=== PATIENT | female | born 1960 | race Caucasian/White ===

== ENCOUNTER 2017-07-03 23:31 | Emergency (ER) | payer OTHER ==
[~2017-07-03] VITALS: Ht 154.9 cm; Wt 71.8 kg
[~2017-07-03 23:31] MED LIST: ASPIRIN81 M1 PO; LEXAPRO10 MG PO; LIPITOR20 MG PO; NOHOMEMEDS; PROMETHAZINE HC25 M1 PO; XANAX0.25 MG PO; ZOFRAN8 M1 PO
[2017-07-04 01:09] LABS: D-DIMER ELISA < 150.00 ng/mLDDU (<230)
[2017-07-04 01:10] LABS: CHLORIDE 105 mEq/L (99-109); POTASSIUM 5.2 mEq/L (3.7-5.4); SODIUM 139 mEq/L (136-147)
[2017-07-04 01:12] LABS: GLUCOSE 116 mg/dL (70-99)
[2017-07-04 01:14] LABS: ANION GAP 13 MEQ/L (2-14); TOTAL BILIRUBIN 0.4 mg/dL (0.0-1.0)
[2017-07-04 01:16] LABS: ALKALINE PHOSPHATASE 94 IU/L (3-129); GFR ESTIMATE (CALCULATED) > 59 mL/min/
[2017-07-04 01:17] LABS: UREA NITROGEN (BUN) 13 mg/dL (9-23)
[2017-07-04 01:26] LABS: HEMATOCRIT 47.2 % (36.0-46.0); MCH 30.7 PG (29.0-34.0); MCHC 33.3 G/DL (30.0-36.0); MCV 92.4 FL (83-99); MEAN PLAT.VOLUME 10.6 uM^3 (9.5-12.4); PLATELET COUNT 230 K/uL (156-360); RBC DIS.WIDTH-CV 12.8 % (11.8-14.6); RBC DIS.WIDTH-SD 43.7 % (39-53); RED BLOOD COUNT 5.11 M/uL (3.80-5.20); WHITE BLOOD COUNT 7.5 K/uL (4.1-10.2)
[2017-07-04 01:27] LABS: TROP-I INTERPRETATION NEGATIVE; TROPONIN-I < 0.01 ng/mL (0.0-0.30)
[2017-07-04] MEDS ORDERED: FLEXERIL10 MG PO (03:36)
[2017-07-04 03:41] VITALS: BP 138/79
== END 2017-07-04 03:47 | disposition home or self-care (01) ==
LOC: EME 23:31
PROVIDERS: Emergency Medicine; Nurse Practitioner Family
DX: R07.9 Chest pain, unspecified (principal); T80.89XA Other complications following infusion, transfusion and therapeutic injection, initial encounter; T80.818A Extravasation of other vesicant agent, initial encounter; M54.6 Pain in thoracic spine; J43.9 Emphysema, unspecified; Z86.711 Personal history of pulmonary embolism; Z86.718 Personal history of other venous thrombosis and embolism; Z85.3 Personal history of malignant neoplasm of breast; Z90.11 Acquired absence of right breast and nipple; Z79.82 Long term (current) use of aspirin; F17.200 Nicotine dependence, unspecified, uncomplicated
CPT/HCPCS: 71020; 71275; 80053; 84484; 85027; 85379; 93005; 99281; 99284; J2405

== ENCOUNTER 2018-05-27 21:04 | Inpatient (IN) | payer OTHER ==
[~2018-05-27] VITALS: Ht 154.9 cm; Wt 70.4 kg
[~2018-05-27 21:04] MED LIST changes: +ASPIR 8181 M1 PO; +FLEXERIL10 MG PO; +ZANTAC150 MG PO; +ZOFRAN4 MG PO; +ZOFRAN8 MG PO
[2018-05-28 13:53] VITALS: BP 157/77
[2018-05-28 19:40] VITALS: BP 150/72
[2018-05-28 19:56] LABS: HEMATOCRIT 44.4 % (36.0-46.0); HEMOGLOBIN 14.3 G/DL (11.9-15.5); MCH 30.6 PG (29.0-34.0); MCHC 32.2 G/DL (30.0-36.0); MCV 95.1 FL (83-99); PLATELET COUNT 185 K/uL (156-360); RBC DIS.WIDTH-CV 12.5 % (11.8-14.6); RBC DIS.WIDTH-SD 43.7 % (39-53); RED BLOOD COUNT 4.67 M/uL (3.80-5.20); WHITE BLOOD COUNT 10.3 K/uL (4.1-10.2)
[2018-05-28 20:06] LABS: CHLORIDE 108 MEQ/L (99-109); POTASSIUM 4.3 MEQ/L (3.7-5.4); SODIUM 139 MEQ/L (136-147)
[2018-05-28 20:12] LABS: CREATININE 0.8 MG/DL (0.6-1.3); GFR ESTIMATE (CALCULATED) > 59 mL/min/; GLUCOSE 151 mg/dL (70-99); UREA NITROGEN (BUN) 12 mg/dL (9-23)
[2018-05-29 00:05] VITALS: BP 147/70
[2018-05-29 03:35] VITALS: BP 140/60
[2018-05-29 07:01] LABS: MCH 30.7 PG (29.0-34.0); MCHC 32.5 G/DL (30.0-36.0); MCV 94.3 FL (83-99); PLATELET COUNT 193 K/uL (156-360); RBC DIS.WIDTH-CV 12.3 % (11.8-14.6); RBC DIS.WIDTH-SD 43.2 % (39-53); RED BLOOD COUNT 4.24 M/uL (3.80-5.20); WHITE BLOOD COUNT 8.7 K/uL (4.1-10.2)
[2018-05-29 07:15] VITALS: BP 148/63
[2018-05-29 07:30] LABS: CHLORIDE 104 MEQ/L (99-109); CREATININE 0.7 MG/DL (0.6-1.3); GFR ESTIMATE (CALCULATED) > 59 mL/min/; GLUCOSE 352 mg/dL (70-99); SODIUM 136 MEQ/L (136-147); UREA NITROGEN (BUN) 10 mg/dL (9-23)
== END 2018-05-29 10:27 | disposition home or self-care (01) | DRG 743 ==
LOC: ENRESERV 21:04 → 2SOUTH 05-28 13:34 → ENRESERV 05-28 16:27 → 2EASTP 05-28 17:50
PROVIDERS: Obstetrics & Gynecology Gynecologic Oncology
DX: N83.201 Unspecified ovarian cyst, right side (principal); N83.202 Unspecified ovarian cyst, left side; R97.1 Elevated cancer antigen 125 [CA 125]; Z80.41 Family history of malignant neoplasm of ovary; E78.5 Hyperlipidemia, unspecified; K21.9 Gastro-esophageal reflux disease without esophagitis; K59.09 Other constipation; F41.9 Anxiety disorder, unspecified; F32.9 Major depressive disorder, single episode, unspecified; F17.200 Nicotine dependence, unspecified, uncomplicated; Z92.21 Personal history of antineoplastic chemotherapy; Z92.3 Personal history of irradiation; Z85.3 Personal history of malignant neoplasm of breast; Z90.11 Acquired absence of right breast and nipple; Z88.0 Allergy status to penicillin
CPT/HCPCS: 36415; 80048; 85027; 86850; 86900; 86901; 86920; 88305; 88307; J0131; J1100; J1170; J1200; J1580; J1885; J2250; J2405; J2710; J2795; J3010; J7050; J7643; Q0175; S0030